=== PATIENT | male | born 1995 | race Caucasian/White ===

== ENCOUNTER 2016-08-30 23:47 | Emergency (ER) | payer BC ==
--- NOTE | 2016-08-31 01:29 | ED ---
- HPI Summary HPI Summary: 21 male presents with complaints of sustaining a needle stick/exposure while assisting a student at [employer] his medications to his right anterior index finger. States he was recapping the needles when it struck his right index finger. No visualized blood on needle, it was an IM injection, however there was blood from his finger after stick. Patient states this occurred around 22:50 08/30/16. 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 Patient is not known to be HIV or hepatitis positive and states he would not ask him to be tested. Very low risk of transmission however is here for prophylaxis counseling and base line blood draw. Denies any symptoms or other complaints at this time. 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 - Source Information HIV: No Hepatitis: No - Other Discussed Post-Exposure prophylaxis (PEP) for HIV: Accepted Discussed PEP for Hepatitis-B: Accepted Serologic Testing (HIV/HBV) Declined by Patient: Yes PMH/Surg Hx/FS Hx/Imm Hx Endocrine/Hematology History: Denies: Hx Diabetes Cardiovascular History: Denies: Hx Hypertension Respiratory History: Denies: Hx Asthma Neurological History: Reports: Hx Migraine - Surgical History Surgery Procedure, Year, and Place: n/a - Immunization History Date of Tetanus Vaccine: 04/19/14 Date of Influenza Vaccine: 12/2015 Immunizations Up to Date: Yes Infectious Disease History: No Infectious Disease History: Denies: Traveled Outside the [place] in Last 30 Days - Family History Known Family History: Positive: None - Social History Alcohol Use: Occasionally Substance Use Type: Reports: None Smoking Status (MU): Never Smoked Tobacco Review of Systems Constitutional: Negative Eyes: Negative ENT: Negative Cardiovascular: Negative Respiratory: Negative Positive: Other - needlestick All Other Systems Reviewed And Are Negative: Yes Physical Exam Triage Information Reviewed: Yes Vital Signs On Initial Exam: Initial Vitals Temp Pulse Resp BP Pulse Ox 98.3 F 68 16 138/96 98 08/31/16 00:00 08/31/16 00:00 08/31/16 00:00 08/31/16 00:00 08/31/16 00:00 Vital Signs Reviewed: Yes Appearance: Positive: Well-Appearing, No Pain Distress, Well-Nourished Skin: Positive: Warm, Skin Color Reflects Adequate Perfusion, Dry, Other - no current bleeding or sign of needlestick to right anterior index finger noted at this time. Negative: Erythema @ Head/Face: Positive: Normal Head/Face Inspection Eyes: Positive: Normal, Conjunctiva Clear ENT: Positive: Hearing grossly normal Neck: Positive: Supple, Nontender Respiratory/Lung Sounds: Positive: Clear to Auscultation, Breath Sounds Present. Negative: Rales, Rhonchi, Wheezes Cardiovascular: Positive: Normal, RRR, Pulses are Symmetrical in both Upper and Lower Extremities. Negative: Murmur, Rub Musculoskeletal: Positive: Normal, Strength/ROM Intact Neurological: Positive: Normal, Sensory/Motor Intact, Alert, Oriented to Person Place, Time Psychiatric: Positive: Affect/Mood Appropriate AVPU Assessment: Alert - Nancy Coma Scale Coma Scale Total: 15 Diagnostics - Vital Signs Vital Signs Temp Pulse Resp BP Pulse Ox 08/31/16 00:35 98.1 F 63 16 127/87 97 08/31/16 00:00 98.3 F 68 16 138/96 98 - Laboratory Lab Statement: Any lab studies that have been ordered have been reviewed, and results considered in the medical decision making process. Needlestick Course/Dx - Course Course Of Treatment: needlestick protocol blood work obtained for baseline. patient counseled and educated on both hepatitis and HIV. very low risk due to mechanism and knowing medical history of source. educated on side effects of prophylactic medications. patient decided he would like to have the prophylactic treatment for HIV at this time anyway. follow up with Dr Valentino infectious disease specialist on Friday. Strongly recommended having source tested as the risk is very low. Patient understands. Given first dose while in ED. 7 day supply to take home and information to Dr Valentino. - Diagnoses Provider Diagnoses: Needlestick injury accident Discharge - Discharge Plan Condition: Stable Disposition: HOME Patient Education Materials: Body Substance Exposure (ED) Referrals: Non Staff,Doctor [Primary Care Provider] - Chicho LESTER,Dmitry Veliz [Medical Doctor] - Additional Instructions: Take medications as prescribed. Follow up with Dr Valentino on Friday. Strongly recommend having source tested.
[2016-08-31] MEDS ORDERED: Tenofovir/Emtricitabine(*) TAB PO ONE ×2 (01:54→03:00)
[2016-08-31] MEDS ORDERED: Raltegravir* 400 MG TAB PO ONE ×2 (01:55→03:00)
[2016-08-31 02:16] LABS: Albumin 4.5 g/dL (3.2-5.2); BUN/Creatinine Ratio 13.8 (8-20); Calcium 9.9 mg/dL (8.6-10.3); EGFR African American 155.5 (>60); EGFR Non-African American 120.9 (>60); Globulin 2.3 g/dL (2-4); Potassium 3.8 mmol/L (3.5-5.0); Total Bilirubin 0.9 mg/dL (0.2-1.0); Total Protein 6.8 g/dL (6.4-8.9)
[2016-08-31 02:29] LABS: Hematocrit 47 % (42-52); Hemoglobin 15.7 g/dl (14.0-18.0); Mean Corpuscular HGB Conc 34 g/dl (31-36); Mean Corpuscular Hemoglobin 28 pg (27-31); Mean Corpuscular Volume 85 fL (80-94); Mean Platelet Volume 9 um3 (7.4-10.4); Red Blood Count 5.52 10^6/ul (4.0-5.4); Red Cell Distribution Width 13 % (10.5-15)
[2016-08-31 03:06] VITALS: BP 122/79
[2016-09-01 16:31] LABS: Manual Entry Verification BM; Rapid HIV INT CONT QC Line Present; Rapid HIV Kit Lot# F308002
== END 2016-08-31 03:08 | disposition home or self-care (01) ==
LOC: ED 23:47
DX: S61.230A Puncture wound without foreign body of right index finger without damage to nail, initial encounter (principal); W46.1XXA Contact with contaminated hypodermic needle, initial encounter; Y93.89 Activity, other specified; Y92.89 Other specified places as the place of occurrence of the external cause; Y99.0 Civilian activity done for income or pay; Z11.4 Encounter for screening for human immunodeficiency virus [HIV]; G43.909 Migraine, unspecified, not intractable, without status migrainosus
CPT/HCPCS: 36415; 80053; 85025; 86703; 86706; 86803; 87340; 99283